=== PATIENT | female | born 1990 | race Caucasian/White ===

== ENCOUNTER 2017-03-30 21:32 | Emergency (ER) | payer OTHER ==
[~2017-03-30] VITALS: Ht 167.6 cm; Wt 138.6 kg
[~2017-03-30 21:32] MED LIST: PREN-234 PO
[2017-03-30 21:39] VITALS: BP 135/70
[2017-03-30 22:08] LABS: BASOPHILS # (AUTO) 0.3 K/uL (0.00-0.22); EOSINOPHILS # (AUTO) 0.2 K/uL (0-0.4); HEMATOCRIT 37.6 % (36-48); HEMOGLOBIN 12.5 g/dL (12.0-16.0); LYMPHOCYTES # (AUTO) 3.5 K/uL (2.5-16.5); MEAN CORPUSCULAR HEMOGLOBIN 28 pg (27-31); MEAN CORPUSCULAR HGB CONC 33 g/dL (33-37); MEAN CORPUSCULAR VOLUME 85 fL (80-94); MONOCYTES # (AUTO) 0.5 K/uL (0.8-1.0); NEUTROPHILS # (AUTO) 6.1 K/uL (1.8-7.7); PLATELET COUNT (AUTO) 284 K/uL (140-450); RED CELL DISTRIBUTION WIDTH 13.6 % (11.6-13.7); WHITE BLOOD COUNT (AUTO) 10.6 K/uL (4.8-10.8)
[2017-03-30 22:23] LABS: ALBUMIN 3.5 g/dL (3.4-5.0); ANION GAP 12.8 (8-16); CARBON DIOXIDE 26.2 mmol/L (21-32); TOTAL BILIRUBIN 0.3 mg/dL (0.0-1.0)
--- NOTE | 2017-03-30 22:58 | NUR ---
PT AMBULATED TO ER BED 10
--- NOTE | 2017-03-30 23:00 | NUR ---
26Y/F PT. PRESENTS TO ED WITH C/O ABDOMINAL PAIN X 1 DAY. PT. STATTES PAIN STATRT TODAY WITH N/V. NO DIARRHEA. HX. ASTHMA. AAO X4, AMBULATORY WITH STEADY GAIT. RESPIRATION ROOM AIR, EVEN AND UNLABORED. SKIN WARM AND DRY. ABDOMEN ROUND, NON TENDER, HYPOACTIVE BS X4. C/O PAIN 10/. VSS, ER MADE AWARE OF PT. STATUS.
[2017-03-30] MEDS ORDERED: ONDANSETRON 4 MG/2 ML VIAL IM ONE (23:10)
[2017-03-30] MEDS ORDERED: KETOROLAC 60 MG/2 ML VIAL IM ONE (23:10)
--- NOTE | 2017-03-30 23:20 | NUR ---
PT. UNABLE TO URINATE, UNABLE TO COLLECT URINE SPECIMEN. DR. SAUL MADE AWARE.
--- NOTE | 2017-03-31 00:20 | NUR ---
Patient discharged with v/s stable. Written and verbal after care instructions given and explained. Patient alert, oriented and verbalized understanding of instructions. Ambulatory with steady gait. All questions addressed prior to discharge. ID band removed. Patient advised to follow up with PMD. Rx of ZOFRAN 4 MG ODT, MOTRIN 800 MG, SENOKOT 8.6 MG given. Patient educated on indication of medication including possible reaction and side effects. Opportunity to ask questions provided and answered.
[2017-03-31 00:22] VITALS: BP 116/70
== END 2017-03-31 00:20 | disposition home or self-care (01) ==
LOC: MED 21:32
DX: R10.84 Generalized abdominal pain (principal); R03.0 Elevated blood-pressure reading, without diagnosis of hypertension; J45.909 Unspecified asthma, uncomplicated; E66.9 Obesity, unspecified; Z88.0 Allergy status to penicillin; Z68.42 Body mass index [BMI] 45.0-49.9, adult
CPT/HCPCS: 36415; 74000; 80053; 81025; 85025; 96372; 99285; J1885; J2405

== ENCOUNTER 2018-02-22 13:26 | Emergency (ER) | payer OTHER ==
[~2018-02-22] VITALS: Ht 167.6 cm; Wt 97.5 kg
[2018-02-22 13:34] VITALS: BP 135/90
--- NOTE | 2018-02-22 13:38 | NUR ---
WAITING FOR AVAILABLE BEDS
--- NOTE | 2018-02-22 14:09 | NUR ---
RT. ANKLE XR/LUMBAR SACRAL XR ORDERED BY JENSEN. PATIENT STILL ON THE GURNEY
--- NOTE | 2018-02-22 14:33 | NUR ---
27 YO F TO ER W/C/O LOWER BACK PAIN NON RADIATING S/P MECHANICAL FALL IN RESTRAUNT BATHROOM. PT STATES "TWISTED RIGHT ANKLE" DURING FALL. PT DENIES ANY HEAD INJURY, CP, SOB, FEVER AT THIS TIME. NO BRUSING NOTED, NO DEFORMITIES TO R ANKLE. SWELLING NOTED TO R ANKLE. WATHER CUP PROVIDED. ER MADE AWARE. WILL CONTINUE TO MONITOR.
--- NOTE | 2018-02-22 14:41 | NUR ---
PATIENT TO BED #5 VIA [facility]
--- NOTE | 2018-02-22 16:33 | NUR ---
PT DOESNOT WANT MORPHINE IVP FOR PAIN. DR. MCCOY MADE AWARE. SAID WILL SEE THE PATIENT.
[2018-02-22] MEDS: MORPHINE SULFATE 4 MG/ML SYR IVP ONE (16:35)
[2018-02-22] MEDS: KETOROLAC 60 MG/2 ML VIAL IM ONE (17:09)
[2018-02-22] MEDS: ACETAMINOPHEN EXTRA STRENGTH 500 MG TAB PO ONE (17:09)
--- NOTE | 2018-02-22 17:09 | NUR ---
Patient discharged with v/s stable. Written and verbal after care instructions given and explained. Patient alert, oriented and verbalized understanding of instructions. Ambulatory with steady gait. All questions addressed prior to discharge. ID band removed. Patient advised to follow up with PMD. Rx of IBUPROFEN AND PERCOCET given. Patient educated on indication of medication including possible reaction and side effects. Opportunity to ask questions provided and answered.
[2018-02-22 17:10] VITALS: BP 133/75
== END 2018-02-22 17:09 | disposition home or self-care (01) ==
LOC: MED 13:26
DX: S33.5XXA Sprain of ligaments of lumbar spine, initial encounter (principal); Z88.0 Allergy status to penicillin; Z79.899 Other long term (current) drug therapy; Z90.49 Acquired absence of other specified parts of digestive tract; W01.0XXA Fall on same level from slipping, tripping and stumbling without subsequent striking against object, initial encounter; Y93.89 Activity, other specified; Y92.89 Other specified places as the place of occurrence of the external cause; Y99.8 Other external cause status
CPT/HCPCS: 72110; 73610; 96372; 99284; J1885; J2270